=== PATIENT | female | born 1955 | race Caucasian/White ===

== ENCOUNTER 2018-04-19 10:17 | Emergency (ER) | payer BC ==
--- OUTSIDE RECORDS SUMMARY | 2018-04-19 10:19 | XMS REPORT | Clinical Summary ---
:1955 Author Organization [facility] Address [address] [place] [address] Care Team Providers Name Role Phone Michael Swift MD Primary Care Provider Allergies Active Allergy Reactions Severity Noted Date Comments Iodine Swelling, Other (See Comments) 01/06/2013 Redness and blister Medications Medication Sig Dispensed Refills Start Date End Date Status carvedilol (COREG) 6.25 Take 6.25 mg by 3 12/12/2015 Active MG tablet mouth 2 (two) times a day. JANUMET XR 50-1,000 mg TAKE 1 TABLET BY 3 09/24/2015 Active tablet, ER multiphase MOUTH EVERY DAY 24 hr WITH EVENING MEAL SWALLOW WHOLE DONT CRUSH,CHEW,OR DIVIDE valsartan-hydrochloroth Take 1 tablet by 3 10/15/2015 Active iazide (DIOVAN-HCT) mouth once daily. 160-12.5 mg per tablet atorvastatin (LIPITOR) Take 10 mg by 0 Active 10 MG tablet mouth daily. aspirin (ECOTRIN) 325 Take 325 mg by 0 Active MG enteric coated mouth daily. tablet Active Problems Problem Noted Date Diastolic congestive heart failure 12/30/2015 Endometrial cancer 12/19/2015 Overview: Stage IA, Grade 1 Encounters Date Type Specialty Care Team Description 02/13/2018 Hospital Encounter Radiology Nivia Acharya breast MD Darion examination 02/05/2018 Transcribe Orders Access Nivia Acharya MD examination (Primary Dx) after 04/18/2017 Family History Medical History Relation Name Comments Prostate cancer Father Breast cancer Maternal Grandmother Heart failure Mother Hypertension Mother Breast cancer Other Grandmother but no cancer of the colon cervix or uterus Heart attack Sister Hypertension Sister Relation Name Status Comments Father Maternal Grandmother Mother Other Grandmother Sister Social History Tobacco Use Types Packs/Day Years Used Date Current Every Day Smoker Smokeless Tobacco: Never Used Alcohol Use Drinks/Week oz/Week Comments No Sex Assigned at Date Recorded Not on file Job Start Date Occupation Industry Not on file Not on file Not on file Travel History Travel Start Travel End No recent travel history available. Last Filed Vital Signs Not on file Plan of Treatment Health Maintenance Due Date Last Done Comments CERVICAL CANCER SCREENING 1975 COLON CANCER SCREENING 2004 SHINGLES VACCINES (1 of 2) 2004 INFLUENZA VACCINE 11/27/2017 BREAST CANCER SCREENING 02/14/2020 02/13/2018, 05/04/2016, 05/04/2016, Additional history exists Implants Implanted Type Area Chief Growth Officer Device Shelf Model / Identifier Expiration Serial / Date Lot Med Lead [id number] - [id number] IPM CARDIAC N/A: [employer] [facility] 09/27/2017 [id number] / Implanted: 12/30/2015 (Quantity not on file) DEFIB N/A [employer] [id number] / [id number] Med Lead [id number] - [id number] IPM CARDIAC N/A: [employer] [facility] 09/27/2017 [id number] / Implanted: 12/30/2015 (Quantity not on file) DEFIB N[employer] [id number] / [id number] Amplia Mri Quad Pig Breeder-D Surescan - [id number] IPM CARDIAC N/A: [employer] [facility] 04/11/2017 [id number] / Implanted: 12/30/2015 (Quantity not on file) DEFIB N/[employer] [id number] / [id number] Lead [id number] Attain Performa - [id number] IPM IMPLANT N/A: [employer] [facility] [id number] / Implanted: 12/30/2015 (Quantity not on file) DEVICES N/A [employer] [id number] / [id number] Lead, Pacemaker Bipolar Fix Forming Atrial And Ventricular Steroid Eluting 52 Centimeter Capsure Fix Novus - [id number] [id number] N/A: [employer] [facility] 09/06/2017 [id number] / Implanted: 12/30/2015 (Quantity not on file) PACEMAKERS N/A [employer] [id number] / [id number] Safesheath2 - [id number] IPM SUPPLIES N/A: [employer] CRM SS9 / Implanted: 12/30/2015 (Quantity not on file) PATIENT N/A [employer] / BILLABLE Safesheath2 - [id number] IPM SUPPLIES N/A: [employer] CRM SS9 / Implanted: 12/30/2015 (Quantity not on file) PATIENT N/A [employer] / BILLABLE Safesheath2 - [id number] IPM SUPPLIES N/A: [employer] CRM SS7 / Implanted: 12/30/2015 (Quantity not on file) PATIENT N/A [employer] / BILLABLE Procedures Procedure Name Priority Date/Time Associated Comments Diagnosis MAMMO BREAST SCREEN Routine 02/13/2018 10:30 Screening breast Results for this TOMOSYNTHESIS AM CDT examination procedure are in BILATERAL the results section. after 04/18/2017 Results Mammo Breast Screen Tomosynthesis Bilateral (02/13/2018 10:30 AM CDT) Narrative [facility]formed [facility]ED[facility] TOMOSYNTHESIS BILATERAL Computer-assisted detection was utilized for the interpretation of this exam. COMPARISON: 05/04/2016 with prior mammogram 2015. TECHNIQUE: Bilateral digital screening mammogram with tomosynthesis was performedand interpreted using computer-assisted detection. CLINICAL HISTORY: Z12.31 Encounter for screening mammogram for malignant neoplasm of breast, Z12.31The patient has no current palpable breast complaints. Patient notes personal history of uterine cancer, and maternal grandmother with breast cancer at age 72. FINDINGS: Bilateral mammogram demonstrates the breast parenchyma to be scattered fibroglandular densities. No adverse changes from prior exam. LEFT:No specific features of malignancy. RIGHT: No specific features of malignancy. Stable appearance of 3 mm low-density circumscribed mass likely compatible with small intramammary lymph node. IMPRESSION: BI-RADS Category 2. Benign findings. Recommend comparison with physical exam and annual screening mammography. I personally reviewed the images and the resident's findings and agree with the final report. This facility is accredited by The [employer] for Mammography. A negative x-ray report should not delay biopsy if a dominant or clinically suspicious mass is present. Not all cancers are identified by x-ray. [facility]-[id number] Performing Organization Address City/State/Zipcode Phone Number [facility] [address] [place] [address] after 04/18/2017 Insurance Payer Benefit Plan / Group Subscriber ID Type Phone Address BCBS BCBS OUT OF STATE xxxxxxxxxxxxxxx PPO Advance Directives Patient has advance care planning documents on file. For more information, please contact:[facility] [address] [place] [address]
[2018-04-19] MEDS ORDERED: PHENAZOPYRIDINE 100MG TAB PO ONE (11:06)
[2018-04-19 11:26] LABS: Urine Bacteria >50 /HPF (<20); Urine Culture Reflex Order REFLEXED; Urine RBC TNTC /HPF (NONE SEEN)
--- NOTE | 2018-04-19 11:30 | ER ---
Nurse's Notes [facility] Name: Aishwarya Olmedo Age: 63 yrs Sex: Female : 1955 Arrival Date: 04/19/2018 Time: 10:19 Bed 20 Private MD: Kvng Swift C Diagnosis: Urinary tract infection, site not specified Presentation: 04/19 10:31 Presenting complaint: Patient states: Urinary frequency and difficulty urinating x 2 hb days, blood in urine today. Transition of care: patient was not received from another setting of care. Onset of symptoms was April 18, 2018. Risk Assessment: Do you want to hurt yourself or someone else? Patient reports no desire to harm self or others. Initial Sepsis Screen: Does the patient meet any 2 criteria? No. Patient's initial sepsis screen is negative. Does the patient have a suspected source of infection? No. Patient's initial sepsis screen is negative. Care prior to arrival: None. 10:31 Method Of Arrival: Ambulatory hb 10:31 Acuity: WILLIAM 4 hb Historical: - Allergies: 10:33 Iodine; hb - Immunization history:: Adult Immunizations up to date. - Social history:: Smoking status: Patient/guardian denies using tobacco. - Ebola Screening: : No symptoms or risks identified at this time. Screenin:45 Abuse screen: Denies threats or abuse. Denies injuries from another. Nutritional hb screening: No deficits noted. Tuberculosis screening: No symptoms or risk factors identified. Fall Risk None identified. Assessment: 10:45 General: Appears in no apparent distress. Behavior is calm, cooperative. Pain: Pain hb currently is 2 out of 10 on a pain scale. Neuro: Level of Consciousness is awake, alert, obeys commands, Oriented to person, place, time, situation. Cardiovascular: Capillary refill < 3 seconds Patient's skin is warm and dry. Respiratory: Airway is patent Trachea midline Respiratory effort is even, unlabored, Respiratory pattern is regular, symmetrical. GI: No signs and/or symptoms were reported involving the gastrointestinal system. : Reports pain urinary frequency. EENT: No signs and/or symptoms were reported regarding the EENT system. Derm: Skin is intact, is healthy with good turgor, Skin is pink, warm \T\ dry. Musculoskeletal: No signs and/or symptoms reported regarding the musculoskeletal system. Vital Signs: 10:31 BP 180 / 79; Pulse 88; Resp 16; Temp 98.1; Pulse Ox 100% on R/A; Pain 2/10; hb 12:06 BP 168 / 79; Pulse 76; Resp 17; Pulse Ox 100% on R/A; aj ED Course: 10:19 Patient arrived in ED. mr 10:19 Kvng Swift MD is Private Physician. mr 10:21 Krista Bañuelos F[facility]-C [facility]. snw 10:21 Kyaw Lincoln MD is Attending Physician. snw 10:29 Charlene Martínez, RN is Primary Nurse. hb 10:32 Triage completed. hb 10:33 Arm band placed on. hb 10:45 Patient has correct armband on for positive identification. Bed in low position. Call hb light in reach. Side rails up X 1. 11:28 Kvng Swift MD is Referral Physician. snw 12:06 No provider procedures requiring assistance completed. Patient did not have IV access aj during this emergency room visit. Administered Medications: 10:58 Drug: Pyridium 200 mg Route: PO; aj 12:08 Follow up: Response: No adverse reaction aj 11:49 Drug: Rocephin (cefTRIAXone) 1 grams Route: IM; Site: right gluteus; aj 12:08 Follow up: Response: No adverse reaction aj Outcome: 11:29 Discharge ordered by . snw 12:06 Discharged to home ambulatory. aj 12:06 Condition: good 12:06 Discharge instructions given to patient, Instructed on discharge instructions, follow up and referral plans. medication usage, Demonstrated understanding of instructions, follow-up care, medications, Prescriptions given X 2. 12:08 Patient left the ED. aj Signatures: Kanchan Singletary, RN RN Krista Munoz FNP-C FNP-Carlos Paola Agrawal mr Charlene Martínez, RN RN hb
--- NOTE | 2018-04-19 11:30 | EDPHYS ---
Physician Documentation [facility] Name: Aishwarya Olmedo Age: 63 yrs Sex: Female : 1955 Arrival Date: 04/19/2018 Time: 10:19 Bed 20 Private MD: Kvng Swift C ED Physician Kyaw Lincoln HPI: 04/19 10:50 This 63 yrs old Female presents to ER via Ambulatory with complaints of snw Urinary Problem. 10:50 Onset: The symptoms/episode began/occurred suddenly, yesterday. Associated signs and snw symptoms: Pertinent positives: urinary s/s. Modifying factors: The patient symptoms are alleviated by nothing, the patient symptoms are aggravated by nothing. The patient has experienced a previous episode. The patient has been recently seen by a physician: had contrast recently. Historical: - Allergies: 10:33 Iodine; hb - Immunization history:: Adult Immunizations up to date. - Social history:: Smoking status: Patient/guardian denies using tobacco. - Ebola Screening: : No symptoms or risks identified at this time. ROS: 10:49 Constitutional: Negative for fever, chills, and weight loss, Eyes: Negative for injury, snw pain, redness, and discharge, ENT: Negative for injury, pain, and discharge, Neck: Negative for injury, pain, and swelling, Cardiovascular: Negative for chest pain, palpitations, and edema, Respiratory: Negative for shortness of breath, cough, wheezing, and pleuritic chest pain, Abdomen/GI: Negative for abdominal pain, nausea, vomiting, diarrhea, and constipation, Back: Negative for injury and pain, MS/Extremity: Negative for injury and deformity, Skin: Negative for injury, rash, and discoloration, Neuro: Negative for headache, weakness, numbness, tingling, and seizure. 10:49 : Positive for urinary symptoms, urinary frequency, small amounts, hematuria, burning with urination, Negative for flank pain, fever. Exam: 10:48 Constitutional: This is a well developed, well nourished patient who is awake, alert, snw and in no acute distress. Head/Face: Normocephalic, atraumatic. Eyes: Pupils equal round and reactive to light, extra-ocular motions intact. Lids and lashes normal. Conjunctiva and sclera are non-icteric and not injected. Cornea within normal limits. Periorbital areas with no swelling, redness, or edema. ENT: Nares patent. No nasal discharge, no septal abnormalities noted. Tympanic membranes are normal and external auditory canals are clear. Oropharynx with no redness, swelling, or masses, exudates, or evidence of obstruction, uvula midline. Mucous membranes moist. Neck: Trachea midline, no thyromegaly or masses palpated, and no cervical lymphadenopathy. Supple, full range of motion without nuchal rigidity, or vertebral point tenderness. No Meningismus. Chest/axilla: Normal chest wall appearance and motion. Nontender with no deformity. No lesions are appreciated. Cardiovascular: Regular rate and rhythm with a normal S1 and S2. No gallops, murmurs, or rubs. Normal PMI, no JVD. No pulse deficits. Respiratory: Lungs have equal breath sounds bilaterally, clear to auscultation and percussion. No rales, rhonchi or wheezes noted. No increased work of breathing, no retractions or nasal flaring. Abdomen/GI: Soft, non-tender, with normal bowel sounds. No distension or tympany. No guarding or rebound. No evidence of tenderness throughout. Back: No spinal tenderness. No costovertebral tenderness. Full range of motion. Skin: Warm, dry with slightly decreased turgor. Normal color with no rashes, no lesions, and no evidence of cellulitis. MS/ Extremity: Pulses equal, no cyanosis. Neurovascular intact. Full, normal range of motion. Neuro: Awake and alert, GCS 15, oriented to person, place, time, and situation. Cranial nerves II-XII grossly intact. Motor strength 5/5 in all extremities. Sensory grossly intact. Cerebellar exam normal. Normal gait. Vital Signs: 10:31 BP 180 / 79; Pulse 88; Resp 16; Temp 98.1; Pulse Ox 100% on R/A; Pain 2/10; hb 12:06 BP 168 / 79; Pulse 76; Resp 17; Pulse Ox 100% on R/A; aj MDM: 10:33 Patient medically screened. snw 11:30 Data reviewed: vital signs, nurses notes. Data interpreted: Pulse oximetry: on room air snw is 100 %. Interpretation: normal. Counseling: I had a detailed discussion with the patient and/or guardian regarding: the historical points, exam findings, and any diagnostic results supporting the discharge/admit diagnosis, the presence of at least one elevated blood pressure reading (>120/80) during this emergency department visit, lab results, the need for outpatient follow up, to return to the emergency department if symptoms worsen or persist or if there are any questions or concerns that arise at home. Special discussion: I have referred the patient to see his PCP for further evaluation of high blood pressure. Based on the history and exam findings, there is no indication for further emergent testing or inpatient evaluation. I discussed with the patient/guardian the need to see the primary care provider for further evaluation of the symptoms. 04/19 10:21 Order name: Urine Culture [facility] 04/19 10:21 Order name: Urine Microscopic Only; Complete Time: 11:27 [facility] 04/19 10:56 Order name: Urine Dipstick--Ancillary (enter results); Complete Time: 11:36 eb Administered Medications: 10:58 Drug: Pyridium 200 mg Route: PO; aj 12:08 Follow up: Response: No adverse reaction aj 11:49 Drug: Rocephin (cefTRIAXone) 1 grams Route: IM; Site: right gluteus; aj 12:08 Follow up: Response: No adverse reaction Disposition: 04/19/18 11:29 Discharged to Home. Impression: Urinary tract infection, site not specified. - Condition is Stable. - Discharge Instructions: Hypertension, Urinary Tract Infection, Adult, Rehydration, Adult. - Prescriptions for Zofran 4 mg Oral Tablet - take 1 tablet by ORAL route every 12 hours As needed; 6 tablet. cefpodoxime 200 mg Oral Tablet - take 1 tablet by ORAL route every 12 hours with food; 20 tablet. - Medication Reconciliation Form, Thank You Letter, Antibiotic Education, Prescription Opioid Use form. - Follow up: Kvng Swift MD; When: 2 - 3 days; Reason: Recheck today's complaints, Continuance of care, Re-evaluation by your physician. Follow up: Emergency Department; When: As needed; Reason: Worsening of condition. Addendum: 05/01/2018 15:08 Co-signature as Attending Physician, Kyaw Lincoln MD Available for consultation at p s1 all times. . Signatures: Dispatcher [employer] Kanchan Martin, RN RN Krista Munoz, WHEEL AND PINION INSPECTOR-C WHEEL AND PINION INSPECTOR-Csnw Charlene Martínez RN RN Kyaw Lincoln MD MD ps1 Corrections: (The following items were deleted from the chart) 04/19 10:46 10:21 Urine Dipstick-Ancillary ordered. colin shaw 12:08 11:29 04/19/2018 11:29 Discharged to Home. Impression: Urinary tract infection, site aj not specified. Condition is Stable. Forms are Medication Reconciliation Form, Thank You Letter, Antibiotic Education, Prescription Opioid Use. Follow up: A Swift; When: 2 - 3 days; Reason: Recheck today's complaints, Continuance of care, Re-evaluation by your physician. Follow up: Emergency Department; When: As needed; Reason: Worsening of condition. colin
[2018-04-19 11:35] LABS: Urine Blood 3+ (NEG); Urine Glucose TRACE (NEG); Urine Protein 3+ (NEG); Urine Specific Gravity 1.025 (1.005-1.030)
[2018-04-19] MEDS ORDERED: CEFTRIAXONE 1000 MG/VIAL ONE (11:52)
[2018-04-19] MEDS ORDERED: LIDOCAINE 1% MPF 5 ML VIAL ONE (11:52)
== END 2018-04-19 12:08 | disposition home or self-care (01) ==
LOC: ER 10:17
DX: N39.0 Urinary tract infection, site not specified (principal)
CPT/HCPCS: 81003; 81015; 87077; 87086; 87088; 87186; 96372; 99283